=== PATIENT | male | born 1995 | race Caucasian/White ===

== ENCOUNTER 2021-02-18 16:14 | Emergency (ER) | payer OTHER ==
[~2021-02-18 16:14] MED LIST: CLEOCIN 150MG150 MG PO; IBUPROFEN800 MG PO; NORCO 5-325 TA1 EACH PO
== END 2021-02-18 16:17 | disposition left against medical advice (07) ==
LOC: ER1 16:14
DX: Z53.21 Procedure and treatment not carried out due to patient leaving prior to being seen by health care provider (principal)

== ENCOUNTER 2021-11-12 06:39 | Emergency (ER) | payer OTHER ==
[2021-11-12 08:05] LABS: HEMOGLOBIN 14.6 gm/dl (14.0-17.5); RED BLOOD COUNT 4.89 M/UL (4.20-5.50); WHITE BLOOD COUNT 22.3 K/UL (4.5-11.0)
[2021-11-12 08:17] LABS: BUN/CREATININE RATIO 22 (0-10)
== END 2021-11-12 10:48 ==
LOC: ER1 06:39
PROVIDERS: Physician Assistant
DX: J36 Peritonsillar abscess (principal)
CPT/HCPCS: 70491; 80048; 85025; 87040; 87081; 87880; 96372; 96374; 99284; J1100; Q9967